=== PATIENT | female | born 1990 | race Caucasian/White ===

== ENCOUNTER 2020-04-16 19:26 | Emergency (ER) | payer SELFPAY ==
[2020-04-16] MEDS: HYDROmorphone 1 MG/ML Syringe IVPUSH ONE ×2 (19:41→21:15)
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
[2020-04-16] MEDS ORDERED: Flumazenil 0.1 MG/ML 5 ML MDV IVPUSH PRN (19:58)
--- NOTE | 2020-04-16 20:44 | CR ---
[id number] RAD/RAD Chest PA or AP 1V EXAM: RAD Chest PA or AP 1V INDICATION: TRAUMA COMPARISON: None. DISCUSSION: Cardiomediastinal silhouette is normal in size and contour. Low lung volumes. No infiltrate, effusion, pneumothorax, or edema. IMPRESSION: Negative examination of the chest. Donovan Peguero MD 04/16/20 2043 Thank you for allowing us to participate in the care of your patient.
--- NOTE | 2020-04-16 20:44 | CT ---
[id number] CT/CT Lumbar Spine WO IV Exam: CT Lumbar Spine WO IV Indication:TRAUMA Comparison: No prior imaging for comparison. Discussion: Acute T12 burst fracture. There is mild bony retropulsion of the posterior vertebral body cortex. Fracture results in approximately 50% vertebral body height loss No evidence of posterior element involvement. Facet joints remain in normal alignment. No other fractures. Vertebral bodies are in normal alignment. Impression: Acute T12 burst fracture with approximately 50% vertebral body height loss. Donovan Peguero MD 04/16/20 2043 Thank you for allowing us to participate in the care of your patient.
[2020-04-16] MEDS: Ondansetron 4 MG/2 ML SDV IVPUSH ONE (21:10)
== END 2020-04-16 21:25 | disposition short-term general hospital (02) ==
LOC: VM.ED 19:26
DX: S22.081A Stable burst fracture of T11-T12 vertebra, initial encounter for closed fracture (principal); F41.9 Anxiety disorder, unspecified; F32.9 Major depressive disorder, single episode, unspecified; Z79.899 Other long term (current) drug therapy; Z91.048 Other nonmedicinal substance allergy status; V48.5XXA Car driver injured in noncollision transport accident in traffic accident, initial encounter; Y92.410 Unspecified street and highway as the place of occurrence of the external cause
CPT/HCPCS: 71045; 72131; 96374; 96375; 99285; J1170; J2405; J3360; 96376